=== PATIENT | female | born 1995 | race Caucasian/White ===

== ENCOUNTER 2018-06-02 13:40 | Emergency (ER) | payer OTHER ==
--- OUTSIDE RECORDS SUMMARY | 2018-06-02 13:41 | XMS REPORT | Clinical Summary ---
:1995 Author Organization [facility] Address [address] [place] [id number] Care Team Providers Name Role Phone Bella Abreu MD Primary Care Provider Allergies Active Allergy Reactions Severity Noted Date Comments Sulfamethoxazole-Trimethoprim 06/29/2016 Clindamycin Hcl 01/22/2016 Current Medications Hospital, Clinic, or Other Ordered Dose Route Frequency Start Date End Date Status Facility Administered Medication triamcinolone acetonide 40 mg IM once 08/18/2017 08/18/2017 Ended (KENALOG-40) injection 40 mg Active Problems Problem Noted Date Fainting spell 12/20/2016 Syncope 12/20/2016 Encounters Date Type Specialty Care Team Description 05/25/2018 Office Visit Otolaryngology Aleksey Gonzales Keloid ( Primary Dx) 01/19/2018 Office Visit OtolaryngologAleksey Giron Keloid scar ( Primary Dx) 10/27/2017 Office Visit OtolaryngologAleksey Giron Keloid ( Primary Dx) 08/18/2017 Office Visit Otolaryngology Aleksey Gonzales Keloid ( Primary Dx) after 06/01/2017 Social History Tobacco Use Types Packs/Day Years Used Date Never Smoker Smokeless Tobacco: Never Used Alcohol Use Drinks/Week oz/Week Comments No Sex Assigned at Date Recorded Not on file Last Filed Vital Signs Vital Sign Reading Time Taken Blood Pressure 117/74 05/25/2018 11:01 AM CDT Pulse 92 05/25/2018 11:01 AM CDT Temperature 36.8 C (98.3 F) 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 Respiratory Rate - - Oxygen Saturation - - Inhaled Oxygen Concentration - - Weight 71.7 kg (158 lb) 05/25/2018 11:01 AM CDT Height 170.2 cm (5' 7") 05/25/2018 11:01 AM CDT Body Mass Index 24.75 05/25/2018 11:01 AM CDT Plan of Treatment Date Type Specialty Care Team Description 08/24/2018 Office Visit Otolaryngology Aleksey Gonzales MD [address] [address] Health Maintenance Due Date Last Done Comments CHLAMYDIA SCREENING 2011 CERVICAL CANCER SCREENING 2016 INFLUENZA VACCINE 04/04/2018 Results Not on fileafter 06/01/2017 Insurance Payer Benefit Plan / Group Subscriber ID Type Phone Address AETNA AETNA HMO,POS,EPO, MC/EC xxxxxxxxxx HMO [phone] [facility] [place], [place] [id number]
--- NOTE | 2018-06-02 14:04 | ER ---
Nurse's Notes [facility] Name: Rocky Terrazas Age: 22 yrs Sex: Female : 1995 Arrival Date: 06/02/2018 Time: 13:41 Bed 24 Private MD: Bella Abreu K Diagnosis: Pain in left knee Presentation: 06/02 13:54 Presenting complaint: Patient states: Left knee pain for 1 month that is worse when aj walking and sleeping. No swelling, no known injury. Transition of care: patient was not received from another setting of care. Onset of symptoms was April 2018. Risk Assessment: Do you want to hurt yourself or someone else? Patient reports no desire to harm self or others. Initial Sepsis Screen: Does the patient meet any 2 criteria? No. Patient's initial sepsis screen is negative. Does the patient have a suspected source of infection? No. Patient's initial sepsis screen is negative. Care prior to arrival: None. 13:54 Method Of Arrival: Ambulatory aj 13:54 Acuity: CLARA 4 aj Triage Assessment: 13:55 General: Appears in no apparent distress. comfortable, Behavior is calm, cooperative, aj appropriate for age. Pain: Complains of pain in left knee. Neuro: Level of Consciousness is awake, alert, obeys commands, Oriented to person, place, time, situation, Appropriate for age. Respiratory: Airway is patent Respiratory effort is even, unlabored, Respiratory pattern is regular, symmetrical. Derm: Skin is intact, is healthy with good turgor, Skin is pink, warm \T\ dry. normal. Musculoskeletal: Reports pain in left knee. 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 - Social history:: Smoking status: Patient/guardian denies using tobacco. - Ebola Screening: : Patient negative for fever greater than or equal to 101.5 degrees Fahrenheit, and additional compatible Ebola Virus Disease symptoms Patient denies exposure to infectious person Patient denies travel to an Ebola-affected area in the 21 days before illness onset No symptoms or risks identified at this time. Vital Signs: 13:55 BP 156 / 88; Pulse 89; Resp 18; Temp 97.1; Pulse Ox 99% on R/A; Weight 79.38 kg; Height aj 5 ft. 5 in. (165.10 cm); 13:55 Body Mass Index 29.12 (79.38 kg, 165.10 cm) ED Course: 13:41 Patient arrived in ED. mr 13:41 Bella Abreu MD is Private Physician. mr 13:53 [facility] kb 13:53 Alberto Goodman MD is Attending Physician. kb 13:54 Triage completed. aj 13:55 Arm band placed on left wrist. Patient placed in an exam room. aj 14:29 Alla Ramsay, RN is Primary Nurse. tl3 Administered Medications: No medications were administered Outcome: 14:03 Discharge ordered by . kb 14:29 Patient left the ED. tl3 Signatures: Pamela Reece FNP-C FNP-Milli Lopez, RN RN Pat Rhodes mr Alla Ramsay, RN RN tl3
--- NOTE | 2018-06-02 14:04 | EDPHYS ---
Physician Documentation [facility] Name: Rocky Terrazas Age: 22 yrs Sex: Female : 1995 Arrival Date: 06/02/2018 Time: 13:41 Bed 24 Private MD: Bella Abreu K ED Physician Alberto Goodman HPI: 06/02 14:04 This 22 yrs old Female presents to ER via Ambulatory with complaints of Knee kb Pain. 14:04 The patient presents with pain, that is acute. The complaints affect the left knee. kb Context: The problem was sustained at an unknown site, resulted from an unknown cause, the patient can fully bear weight, the patient is able to ambulate, without difficulty. Onset: The symptoms/episode began/occurred 1 month(s) ago. Modifying factors: The symptoms are alleviated by nothing. the symptoms are aggravated by movement. Associated signs and symptoms: The patient has no apparent associated signs or symptoms. Treatment prior to arrival includes: no previous treatment. Severity of symptoms: At their worst the symptoms were mild, moderate, in the emergency department the symptoms are unchanged. The patient has not experienced similar symptoms in the past. The patient has not recently seen a physician. 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 - Social history:: Smoking status: Patient/guardian denies using tobacco. - Ebola Screening: : Patient negative for fever greater than or equal to 101.5 degrees Fahrenheit, and additional compatible Ebola Virus Disease symptoms Patient denies exposure to infectious person Patient denies travel to an Ebola-affected area in the 21 days before illness onset No symptoms or risks identified at this time. ROS: 14:03 Constitutional: Negative for fever, chills, and weight loss, Cardiovascular: Negative kb for chest pain, palpitations, and edema, Respiratory: Negative for shortness of breath, cough, wheezing, and pleuritic chest pain, Abdomen/GI: Negative for abdominal pain, nausea, vomiting, diarrhea, and constipation, Back: Negative for injury and pain, Skin: Negative for injury, rash, and discoloration, Neuro: Negative for headache, weakness, numbness, tingling, and seizure. 14:03 MS/extremity: Positive for pain, of the left knee. Exam: 14:03 Constitutional: This is a well developed, well nourished patient who is awake, alert, kb and in no acute distress. Head/Face: Normocephalic, atraumatic. Chest/axilla: Normal chest wall appearance and motion. Nontender with no deformity. No lesions are appreciated. Cardiovascular: Regular rate and rhythm with a normal S1 and S2. No gallops, murmurs, or rubs. Normal PMI, no JVD. No pulse deficits. Respiratory: Lungs have equal breath sounds bilaterally, clear to auscultation and percussion. No rales, rhonchi or wheezes noted. No increased work of breathing, no retractions or nasal flaring. Abdomen/GI: Soft, non-tender, with normal bowel sounds. No distension or tympany. No guarding or rebound. No evidence of tenderness throughout. Back: No spinal tenderness. No costovertebral tenderness. Full range of motion. Skin: Warm, dry with normal turgor. Normal color with no rashes, no lesions, and no evidence of cellulitis. MS/ Extremity: Pulses equal, no cyanosis. Neurovascular intact. Full, normal range of motion. Neuro: Awake and alert, GCS 15, oriented to person, place, time, and situation. Cranial nerves II-XII grossly intact. Motor strength 5/5 in all extremities. Sensory grossly intact. Cerebellar exam normal. Normal gait. Vital Signs: 13:55 BP 156 / 88; Pulse 89; Resp 18; Temp 97.1; Pulse Ox 99% on R/A; Weight 79.38 kg; Height aj 5 ft. 5 in. (165.10 cm); 13:55 Body Mass Index 29.12 (79.38 kg, 165.10 cm) aj MDM: 13:56 Patient medically screened. kb 14:03 Data reviewed: vital signs, nurses notes. Data interpreted: Pulse oximetry: on room air kb is 99 %. Interpretation: normal. Counseling: I had a detailed discussion with the patient and/or guardian regarding: the historical points, exam findings, and any diagnostic results supporting the discharge/admit diagnosis, the need for outpatient follow up, a orthopedic surgeon, to return to the emergency department if symptoms worsen or persist or if there are any questions or concerns that arise at home. Administered Medications: No medications were administered Disposition: 17:34 Co-signature as Attending Physician, Alberto Goodman MD. Disposition: 06/02/18 14:03 Discharged to Home. Impression: Pain in left knee. - Condition is Stable. - Discharge Instructions: Knee Pain, [id number]. - Medication Reconciliation Form, Thank You Letter, Antibiotic Education, Prescription Opioid Use form. - Follow up: Emergency Department; When: As needed; Reason: Worsening of condition. Follow up: Private Physician; When: 2 - 3 days; Reason: Recheck today's complaints, Continuance of care, Re-evaluation by your physician. Signatures: Pamela Reece, AD TRAFFICKER-C AD TRAFFICKER-CkMilli Glover RN RN aj Starr, Gregory, MD MD Alla Ramsay RN RN tl3 Corrections: (The following items were deleted from the chart) 14:29 14:03 06/02/2018 14:03 Discharged to Home. Impression: Pain in left knee. Condition is tl3 Stable. Forms are Medication Reconciliation Form, Thank You Letter, Antibiotic Education, Prescription Opioid Use. Follow up: Emergency Department; When: As needed; Reason: Worsening of condition. Follow up: Private Physician; When: 2 - 3 days; Reason: Recheck today's complaints, Continuance of care, Re-evaluation by your physician. kb
== END 2018-06-02 14:29 | disposition home or self-care (01) ==
LOC: ER 13:40
DX: M25.562 Pain in left knee (principal); Z88.1 Allergy status to other antibiotic agents; Z88.3 Allergy status to other anti-infective agents
CPT/HCPCS: 99281

== ENCOUNTER 2018-06-21 23:55 | Emergency (ER) | payer OTHER ==
--- OUTSIDE RECORDS SUMMARY | 2018-06-22 00:01 | XMS REPORT | Clinical Summary ---
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 Respiratory Rate - - Oxygen Saturation - - Inhaled Oxygen Concentration - - Weight 71.7 kg (158 lb) 05/25/2018 11:01 AM CDT Height 170.2 cm (5' 7") 05/25/2018 11:01 AM CDT Body Mass Index 24.75 05/25/2018 11:01 AM CDT Plan of Treatment Date Type Specialty Care Team Description 08/24/2018 Office Visit Otolaryngology Aleksey Gonzales MD [address] [address] Health Maintenance Due Date Last Done Comments CHLAMYDIA SCREENING 2011 CERVICAL CANCER SCREENING 2016 INFLUENZA VACCINE 04/04/2018 Results Not on fileafter 06/21/2017 Insurance Payer Benefit Plan / Group Subscriber ID Type Phone Address AETNA AETNA HMO,POS,EPO, MC/EC xxxxxxxxxx HMO [phone] [facility] [place], [place] [id number]
[2018-06-22] MEDS ORDERED: NA CHLORIDE 0.9% 1,000 ML ONE (00:17)
[2018-06-22] MEDS ORDERED: LORazepam 2 MG/ML VIAL ONE (00:17)
[2018-06-22 00:55] LABS: Absolute Lymphocytes (CBC) 2.5 K/uL (0.7-4.9); Absolute Monocytes 0.6 K/uL (0.1-1.3); Absolute Neutrophil 4.1 K/uL (1.8-8.0); Basophils % 0.1 % (0-1.3); Eosinophils % 0.7 % (0-4.4); Hematocrit 43.6 % (36.0-45.0); Lymphocytes % 34.3 % (15.3-44.8); MCH 29.6 pg (27.0-35.0); MCV 87.7 fL (80-100); MPV 8.1 fL (7.6-11.3); Monocytes % 7.9 % (3.3-12.3); RBC Red Blood Cell Count 4.98 M/uL (3.86-4.86)
[2018-06-22 00:58] LABS: BUN Blood Urea Nitrogen 5 mg/dL (7-18); Bicarbonate 21 mmol/L (21-32); Glucose Level 123 mg/dL (74-106); Potassium 4.3 mmol/L (3.5-5.1); Sodium Level 146 mmol/L (136-145)
[2018-06-22 01:45] LABS: Barbiturates NEGATIVE (NEGATIVE); Benzodiazepines POSITIVE (NEGATIVE); Cocaine NEGATIVE (NEGATIVE); METHAMPHETAM NEGATIVE (NEGATIVE); Methadone NEGATIVE (NEGATIVE); Opiates NEGATIVE (NEGATIVE); Phencyclidine NEGATIVE (NEGATIVE); THC Cannibis NEGATIVE (NEGATIVE)
--- NOTE | 2018-06-22 01:49 | ER ---
Nurse's Notes [facility] Name: Rocky Terrazas Age: 22 yrs Sex: Female : 1995 Arrival Date: 06/22/2018 Time: 00:01 Bed 26 Private MD: Diagnosis: Alcohol use, unspecified with intoxication;Panic disorder [episodic paroxysmal anxiety] without agoraphobia Presentation: 06/22 00:07 Presenting complaint: EMS states: Panic Attack, started this evening after drinking 4 tl3 beers, pt has family stressors, Grandfather has been placed on Hospice and she is afraid that she will not get to see him to say good-bye. Transition of care: patient was not received from another setting of care. Onset of symptoms was June 22, 2018. Risk Assessment: Do you want to hurt yourself or someone else? Patient reports no desire to harm self or others. Initial Sepsis Screen: Does the patient meet any 2 criteria? No. Patient's initial sepsis screen is negative. Does the patient have a suspected source of infection? No. Patient's initial sepsis screen is negative. Care prior to arrival: Medication(s) given: intranasal Versed 4 mg. 00:07 Method Of Arrival: EMS: [facility] tl3 00:07 Acuity: CLARA 3 tl3 Triage Assessment: 00:10 General: Appears uncomfortable, well developed, well nourished, Behavior is tl3 cooperative, anxious, restless. Pain: Denies pain. EENT: No signs and/or symptoms were reported regarding the EENT system. Neuro: Level of Consciousness is awake, alert, obeys commands, Oriented to person, place, time, situation, Appropriate for age. Cardiovascular: Patient's skin is warm and dry. Rhythm is sinus tachycardia. Respiratory: Airway is patent Respiratory effort is even, labored, gasping, with nasal flaring, Respiratory pattern is regular, symmetrical, tachypnea Breath sounds are clear bilaterally. GI: No signs and/or symptoms were reported involving the gastrointestinal system. : No signs and/or symptoms were reported regarding the genitourinary system. Derm: No signs and/or symptoms reported regarding the dermatologic system. Musculoskeletal: No signs and/or symptoms reported regarding the musculoskeletal system. 00:10 General: pt with quick short breaths, head bobs with each breath, able to communicate tl3 and answer questions. 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 - Social history:: Smoking status: unknown. - Ebola Screening: : No symptoms or risks identified at this time. Screenin:22 Abuse screen: Denies threats or abuse. Denies injuries from another. Nutritional mg2 screening: No deficits noted. Tuberculosis screening: No symptoms or risk factors identified. Fall Risk IV access (20 points). Assessment: 00:22 Reassessment: No changes from previously documented assessment. tl3 00:24 Reassessment: father and brother at bedside. tl3 00:44 Reassessment: No changes from previously documented assessment. Patient and/or family tl3 updated on plan of care and expected duration. Pain level reassessed. Patient is alert, oriented x 3, equal unlabored respirations, skin warm/dry/pink. pt HR and RR decreasing. Vital Signs: 00:10 BP 131 / 104; Pulse 138; Resp 26; Pulse Ox 100% on R/A; tl3 00:28 BP 134 / 75; Pulse 135; Resp 22; Pulse Ox 100% on R/A; tl3 00:44 BP 148 / 83; Pulse 128; Resp 22; Pulse Ox 99% ; tl3 01:13 BP 129 / 98; Pulse 113; Resp 20; Pulse Ox 100% on R/A; mg2 02:03 BP 107 / 80; Pulse 107; Resp 18; Pulse Ox 100% on R/A; Pain 0/10; mg2 ED Course: 00:01 Patient arrived in ED. am2 00:01 Rip Angel PA is PHCP. jr8 00:01 Nicko Gutierrez MD is Attending Physician. jr8 00:07 Alla Ramsay, NATALIA is Primary Nurse. tl3 00:10 Triage completed. tl3 00:10 Arm band placed on right wrist. tl3 00:21 No provider procedures requiring assistance completed. Inserted saline lock: 20 gauge mg2 in right antecubital area, using aseptic technique. Blood collected. 00:21 Patient has correct armband on for positive identification. Bed in low position. Call mg2 light in reach. Side rails up X2. Adult w/ patient. Pulse ox on. NIBP on. Door closed. Warm blanket given. 01:07 UDS Sent. tl3 02:04 IV discontinued, intact, bleeding controlled, No redness/swelling at site. Pressure mg2 dressing applied. Administered Medications: 00:20 Drug: NS 0.9% 1000 ml Route: IV; Rate: 1000 ml; Site: right antecubital; mg2 01:13 Follow up: Response: No adverse reaction; IV Status: Completed infusion mg2 01:49 Follow up: Response: No adverse reaction; IV Status: Completed infusion mg2 00:20 Drug: Ativan 1 mg Route: IVP; Site: right antecubital; mg2 01:13 Follow up: Response: No adverse reaction; Marked relief of symptoms; Anxiety decreased mg2 01:49 Not Given (Physician Discretion): NS 0.9% 1000 ml IV at 1000 ml once mg2 Outcome: 01:48 Discharge ordered by MD. caicedo 02:04 Discharged to home via wheelchair, with family. mg2 02:04 Condition: stable 02:04 Discharge instructions given to patient, family, Instructed on discharge instructions, follow up and referral plans. Demonstrated understanding of instructions, follow-up care. 02:04 Patient left the ED. mg2 Signatures: Rip Angel PA PA jr8 Milli Villasenor am2 Alla Ramsay RN RN tl3 Cody Tay RN RN mg2
--- NOTE | 2018-06-22 01:49 | EDPHYS ---
Physician Documentation [facility] Name: Rocky Terrazas Age: 22 yrs Sex: Female : 1995 Arrival Date: 06/22/2018 Time: 00:01 Bed 26 Private MD: ED Physician Nicko Gutierrez HPI: 06/22 00:14 This 22 yrs old Female presents to ER via EMS with complaints of Anxiety. jr8 00:14 The patient presents to the emergency department with anxiety, grandfather dying . jr8 Onset: The symptoms/episode began/occurred acutely, today. Associated signs and symptoms: The patient has no apparent associated signs or symptoms. Severity of symptoms: At their worst the symptoms were moderate in the emergency department the symptoms are unchanged. The patient has experienced a previous episode. The patient has not recently seen a physician. Patient stated that she had a few beers tonight. Was thinking about her grandfather who is dying and does not know if she will be able to make it down there before he passes away. Stated that she started to become very anxious. EMS was called by family. Stated that she was extremely worked up on seen and could not even answer initially until medicated. Now doing a lot better . 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 - Social history:: Smoking status: unknown. - Ebola Screening: : No symptoms or risks identified at this time. ROS: 00:14 Eyes: Negative for injury, pain, redness, and discharge, ENT: Negative for injury, jr8 pain, and discharge, Neck: Negative for injury, pain, and swelling, Cardiovascular: Negative for chest pain, palpitations, and edema, Respiratory: Negative for shortness of breath, cough, wheezing, and pleuritic chest pain, Abdomen/GI: Negative for abdominal pain, nausea, vomiting, diarrhea, and constipation, Back: Negative for injury and pain, MS/Extremity: Negative for injury and deformity, Skin: Negative for injury, rash, and discoloration, Neuro: Negative for headache, weakness, numbness, tingling, and seizure. 00:14 Psych: Positive for anxiety, Negative for depression, alcohol dependence, suicide gesture, suicidal ideation. Exam: 00:14 Eyes: Pupils equal round and reactive to light, extra-ocular motions intact. Lids and jr8 lashes normal. Conjunctiva and sclera are non-icteric and not injected. Cornea within normal limits. Periorbital areas with no swelling, redness, or edema. ENT: Nares patent. No nasal discharge, no septal abnormalities noted. Tympanic membranes are normal and external auditory canals are clear. Oropharynx with no redness, swelling, or masses, exudates, or evidence of obstruction, uvula midline. Mucous membranes moist. Neck: Trachea midline, no thyromegaly or masses palpated, and no cervical lymphadenopathy. Supple, full range of motion without nuchal rigidity, or vertebral point tenderness. No Meningismus. Cardiovascular: Regular rate and rhythm with a normal S1 and S2. No gallops, murmurs, or rubs. Normal PMI, no JVD. No pulse deficits. Respiratory: Lungs have equal breath sounds bilaterally, clear to auscultation and percussion. No rales, rhonchi or wheezes noted. No increased work of breathing, no retractions or nasal flaring. Abdomen/GI: Soft, non-tender, with normal bowel sounds. No distension or tympany. No guarding or rebound. No evidence of tenderness throughout. Back: No spinal tenderness. No costovertebral tenderness. Full range of motion. Skin: Warm, dry with normal turgor. Normal color with no rashes, no lesions, and no evidence of cellulitis. MS/ Extremity: Pulses equal, no cyanosis. Neurovascular intact. Full, normal range of motion. Neuro: Awake and alert, GCS 15, oriented to person, place, time, and situation. Cranial nerves II-XII grossly intact. Motor strength 5/5 in all extremities. Sensory grossly intact. Cerebellar exam normal. Normal gait. 00:14 Constitutional: The patient appears alert, awake, anxious. 00:14 Psych: Behavior/mood is cooperative, anxious, Oriented to person, place, time, Patient has no thoughts/intents to harm self or others. Judgement / Insight is normal. Memory is normal. Delusions/hallucinations are not present. Vital Signs: 00:10 BP 131 / 104; Pulse 138; Resp 26; Pulse Ox 100% on R/A; tl3 00:28 BP 134 / 75; Pulse 135; Resp 22; Pulse Ox 100% on R/A; tl3 00:44 BP 148 / 83; Pulse 128; Resp 22; Pulse Ox 99% ; tl3 01:13 BP 129 / 98; Pulse 113; Resp 20; Pulse Ox 100% on R/A; mg2 02:03 BP 107 / 80; Pulse 107; Resp 18; Pulse Ox 100% on R/A; Pain 0/10; mg2 MDM: 00:01 Patient medically screened. 01:46 Data reviewed: vital signs, nurses notes, lab test result(s), and as a result, I will jr8 discharge patient. Data interpreted: Pulse oximetry: on room air is 100 %. Interpretation: normal. Counseling: I had a detailed discussion with the patient and/or guardian regarding: the historical points, exam findings, and any diagnostic results supporting the discharge/admit diagnosis, lab results, the need for outpatient follow up, a family practitioner, to return to the emergency department if symptoms worsen or persist or if there are any questions or concerns that arise at home. Response to treatment: the patient's symptoms have resolved after treatment. ED course: Patient is now resting comfortably in exam room. Vitals are normalizing. Patient over 3 x the normal alcohol limit. Family at bedside and will be with her over night and watch her throughout night tonight. That being said I think patient can safely go home soon as she has been stable throughout ED course thus far . 06/22 00:09 Order name: CBC with Diff; Complete Time: 06/22 00:09 Order name: Basic Metabolic Panel; Complete Time: 06/22 00:09 Order name: UDS; Complete Time: :06/22 00:09 Order name: ETOH Level; Complete Time: 06/22 00:09 Order name: IV; Complete Time: 06/22 00:09 Order name: Urine Test (obtain specimen); Complete Time: :06/22 00:09 Order name: Urine Dipstick-Ancillary (obtain specimen); Complete Time: 06/22 01:10 Order name: EKG - Nurse/Tech; Complete Time: 01:10 jr8 Administered Medications: 00:20 Drug: NS 0.9% 1000 ml Route: IV; Rate: 1000 ml; Site: right antecubital; mg2 01:13 Follow up: Response: No adverse reaction; IV Status: Completed infusion mg2 01:49 Follow up: Response: No adverse reaction; IV Status: Completed infusion mg2 00:20 Drug: Ativan 1 mg Route: IVP; Site: right antecubital; mg2 01:13 Follow up: Response: No adverse reaction; Marked relief of symptoms; Anxiety decreased mg2 01:49 Not Given (Physician Discretion): NS 0.9% 1000 ml IV at 1000 ml once mg2 Disposition: 06:06 Co-signature as Attending Physician, Nicko Gutierrez MD I agree with the assessment and steph plan of care. Disposition: 06/22/18 01:48 Discharged to Home. Impression: Alcohol use, unspecified with intoxication, Panic disorder [episodic paroxysmal anxiety] without agoraphobia. - Condition is Stable. - Discharge Instructions: Panic Attacks. - Medication Reconciliation Form, Thank You Letter, Antibiotic Education, Prescription Opioid Use, Work release form form. - Follow up: Private Physician; When: 1 - 2 days; Reason: Recheck today's complaints, Continuance of care, Re-evaluation by your physician. - Problem is new. - Symptoms have improved. Signatures: Dispatcher [employer] EDNicko Hickman MD MD cha Roszak, Josh, PA PA jr8 Alla Ramsay RN RN tl3 Cody Tay RN RN mg2 Corrections: (The following items were deleted from the chart) 02:04 01:48 06/22/2018 01:48 Discharged to Home. Impression: Alcohol use, unspecified with mg2 intoxication; Panic disorder [episodic paroxysmal anxiety] without agoraphobia. Condition is Stable. Forms are Medication Reconciliation Form, Thank You Letter, Antibiotic Education, Prescription Opioid Use. Follow up: Private Physician; When: 1 - 2 days; Reason: Recheck today's complaints, Continuance of care, Re-evaluation by your physician. Problem is new. Symptoms have improved. jr8
--- NOTE | 2018-06-23 04:20 | EKG ---
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
== END 2018-06-22 02:04 | disposition home or self-care (01) ==
LOC: ER 23:55
DX: F41.0 Panic disorder [episodic paroxysmal anxiety] (principal); F10.129 Alcohol abuse with intoxication, unspecified; Z88.1 Allergy status to other antibiotic agents
CPT/HCPCS: 36415; 80048; 80307; 80320; 85025; 93005; 96361; 96374; 99284; J7030